=== PATIENT | female | born 1945 | race Two or more races ===

== ENCOUNTER 2023-04-26 01:05 | Emergency (ER) | payer OTHER ==
[~2023-04-26] VITALS: Ht 167.6 cm; Wt 75.7 kg
[~2023-04-26 01:05] MED LIST: KLONOPIN1 MG/TAB PO; PROZAC20 MG PO
[2023-04-26] MEDS ORDERED: ESCITALOPRAM OX20 MG PO (01:22)
[2023-04-26] MEDS ORDERED: hydrOXYzine PAMOATE 50 MG CAPSULE PO STA (02:31)
== END 2023-04-26 02:56 ==
LOC: ER 01:05
DX: F41.8 Other specified anxiety disorders (principal)